=== PATIENT | male | born 1940 | race Caucasian/White ===

== ENCOUNTER 2019-03-13 20:44 | Inpatient (IN) | payer MEDICARE, MEDICAID ==
[~2019-03-13] VITALS: Ht 175.3 cm; Wt 111.1 kg
--- NOTE | 2019-03-13 21:07 | NUR ---
2 person assist bladder hygiene provided
[2019-03-13] MEDS ORDERED: FLO0.4C PO (21:17)
[2019-03-13] MEDS ORDERED: OMEP40CA13 PO (21:17)
[2019-03-13] MEDS ORDERED: FERR325T28 PO (21:17)
[2019-03-13] MEDS ORDERED: SIMV10TA2 PO (21:17)
[2019-03-13] MEDS ORDERED: FURO-150 PO (21:17)
[2019-03-13] MEDS ORDERED: INSU100I31 SUBCUT (21:17)
[2019-03-13] MEDS ORDERED: HYDR500C18 PO (21:17)
[2019-03-13] MEDS ORDERED: POTA10TA19 PO (21:17)
[2019-03-13] MEDS ORDERED: DICL100G15 TOP (21:17)
[2019-03-13] MEDS ORDERED: LISI-600 PO (21:17)
--- NOTE | 2019-03-13 21:28 | NUR ---
the pt is very comfortable, covered in warmed blankets. Encouraged him to rest, that soon he will have a bed upstairs.
[2019-03-13 21:37] LABS: EOSINOPHILS # (AUTO) 0.1 X10'3 (0-0.9); HEMOGLOBIN 8.3 g/dl (14.0-17.9); LYMPHOCYTES # (AUTO) 0.5 X10'3 (1.1-4.8); MONOCYTES # (AUTO) 0.4 X10'3 (0-0.9); NEUTROPHILS # (AUTO) 3.1 X10'3 (1.8-7.7); NEUTROPHILS % (AUTO) 75.5 % (42-75); WHITE BLOOD COUNT 4.1 X10'3 (4.5-11.0)
[2019-03-13 21:38] LABS: BASOPHILS % (AUTO) 0.7 % (0-1); HEMATOCRIT 24.9 % (42.0-52.0); LYMPHOCYTES % (AUTO) 11.9 % (21-51); MEAN CORPUSCULAR HEMOGLOBIN 34.1 PG (27.0-31.0); MEAN CORPUSCULAR HGB CONC 33.4 g/dL (33.0-36.5); MEAN CORPUSCULAR VOLUME 102.1 FL (78-98); MEAN PLATELET VOLUME 7.7 FL (7.4-10.4); MONOCYTES % (AUTO) 9.9 % (2-12); PLATELET COUNT 410 X10'3 (140-440); RED BLOOD COUNT 2.44 X10'6 (4.70-6.10); RED CELL DISTRIBUTION WIDTH 22.6 % (11.5-14.5)
[2019-03-13 21:50] LABS: ALANINE AMINOTRANSFERASE 26 U/L (12-78); ALBUMIN 2.4 G/DL (3.4-5.0); ALBUMIN/GLOBULIN RATIO 0.5 (1.1-1.5); ALKALINE PHOSPHATASE 73 IU/L (46-116); ANION GAP 6 (8-16); ASPARTATE AMINO TRANSFERASE 25 U/L (10-37); BILIRUBIN,TOTAL 0.9 MG/DL (0.1-1.0); BLOOD UREA NITROGEN 24 MG/DL (7-18); BUN/CREATININE RATIO 15.4 (5.4-32.0); CALCIUM 9.2 MG/DL (8.5-10.1); CHLORIDE 105 MMOL/L (99-107); CREATININE 1.56 MG/DL (0.60-1.10); GLUCOSE 84 MG/DL (70-104); POTASSIUM 4.5 MMOL/L (3.5-5.1); SODIUM 137 MMOL/L (135-145); TOTAL CARBON DIOXIDE 25.8 MMOL/L (24-32); TOTAL PROTEIN 7.3 G/DL (6.4-8.2); eGFR 43 ML/MIN
[2019-03-13] MEDS ORDERED: acetaminophen 325mg tablet PO PRN (21:50)
[2019-03-13] MEDS ORDERED: ondansetron/PF 4mg/2ml inj IV PRN (21:50)
[2019-03-13] MEDS ORDERED: magnesium hydroxide 30ml (MOM) UD suspension PO PRN (21:50)
[2019-03-13] MEDS ORDERED: mag hydrox/Alum hydrox/simeth 30ml oral suspension PO PRN (21:50)
[2019-03-13] MEDS ORDERED: insulin Lispro (HumaLOG) vial - multi-dose SQ SCH (21:55)
[2019-03-13] MEDS ORDERED: MESSAGE TO PHARMACY PO ONE (21:55)
[2019-03-13] MEDS ORDERED: dextrose 50%-water 50ml dispensing syringe IV PRN ×2 (21:55)
[2019-03-13] MEDS ORDERED: dextrose ORAL solution 15 GM/59 ML bottle PO PRN ×2 (21:55)
[2019-03-13] MEDS ORDERED: glucagon, human recombinant 1mg kit SUBCUT PRN (21:55)
[2019-03-13 22:01] LABS: ANISOCYTOSIS 3+; PLATELET ESTIMATE INCREASED; POLYCHROMASIA FEW
[2019-03-13 22:18] LABS: HEMOGLOBIN A1C 5.4 % (4.5-6.2)
[2019-03-13 22:45] VITALS: BP 146/70
--- NOTE | 2019-03-13 23:26 | NUR ---
Patient arrived via [facility], transferred to bed via slide board, vitals obtained, telebox applie. Patient is stable. 2 RN skin check complete.
[2019-03-14 02:00] VITALS: BP 128/64
[2019-03-14] MEDS ORDERED: DICLOFENAC SODIUM 1 GM TOP SCH (02:00)
--- NOTE | 2019-03-14 06:15 | NUR ---
Patient in room PCU 3019. I have received report from MARCUS Guadarrama and had the opportunity to ask questions and assume patient care.
[2019-03-14 06:18] LABS: BASOPHILS % (AUTO) 0.8 % (0-1); EOSINOPHILS # (AUTO) 0.1 X10'3 (0-0.9); HEMATOCRIT 23.1 % (42.0-52.0); HEMOGLOBIN 7.6 g/dl (14.0-17.9); LYMPHOCYTES # (AUTO) 0.3 X10'3 (1.1-4.8); LYMPHOCYTES % (AUTO) 8.8 % (21-51); MEAN CORPUSCULAR HEMOGLOBIN 33.9 PG (27.0-31.0); MEAN CORPUSCULAR HGB CONC 33.1 g/dL (33.0-36.5); MEAN CORPUSCULAR VOLUME 102.6 FL (78-98); MONOCYTES # (AUTO) 0.4 X10'3 (0-0.9); NEUTROPHILS # (AUTO) 2.9 X10'3 (1.8-7.7); NEUTROPHILS % (AUTO) 78.4 % (42-75); PLATELET COUNT 389 X10'3 (140-440); RED BLOOD COUNT 2.25 X10'6 (4.70-6.10); RED CELL DISTRIBUTION WIDTH 22.3 % (11.5-14.5); WHITE BLOOD COUNT 3.7 X10'3 (4.5-11.0)
--- NOTE | 2019-03-14 06:51 | NUR ---
Problems reprioritized. Patient report given, questions answered & plan of care reviewed with MARCUS Cox.
[2019-03-14 07:01] LABS: ALANINE AMINOTRANSFERASE 25 U/L (12-78); ALBUMIN 2.3 G/DL (3.4-5.0); ALBUMIN/GLOBULIN RATIO 0.5 (1.1-1.5); ALKALINE PHOSPHATASE 69 IU/L (46-116); ANION GAP 9 (8-16); ASPARTATE AMINO TRANSFERASE 23 U/L (10-37); BILIRUBIN,TOTAL 1.1 MG/DL (0.1-1.0); BLOOD UREA NITROGEN 22 MG/DL (7-18); BUN/CREATININE RATIO 16.5 (5.4-32.0); CALCIUM 9.1 MG/DL (8.5-10.1); CHLORIDE 105 MMOL/L (99-107); CREATININE 1.33 MG/DL (0.60-1.10); GLUCOSE 75 MG/DL (70-104); POTASSIUM 4.5 MMOL/L (3.5-5.1); SODIUM 138 MMOL/L (135-145); TOTAL CARBON DIOXIDE 24.3 MMOL/L (24-32); eGFR 52 ML/MIN
[2019-03-14 07:12] VITALS: BP 110/37
[2019-03-14 07:41] LABS: ANISOCYTOSIS 3+; PLATELET ESTIMATE NORMAL
[2019-03-14 07:42] LABS: LARGE PLATELETS FEW
[2019-03-14] MEDS: ferrous sulfate 325mg tablet PO SCH (08:54)
[2019-03-14] MEDS: pantoprazole 40mg Tablet.DR PO SCH (08:54)
[2019-03-14] MEDS: lisinopril 10 MG tablet PO SCH (08:55)
[2019-03-14] MEDS: furosemide 20MG tablet PO SCH ×2 (08:55→21:00)
--- NOTE | 2019-03-14 10:00 | NUR ---
Dr. Guo at bedside. new order to d/c Voltaren cream.
[2019-03-14 11:00] VITALS: BP 128/69
[2019-03-14 15:00] VITALS: BP 136/72
[2019-03-14 19:00] VITALS: BP 135/69
--- NOTE | 2019-03-14 19:02 | NUR ---
Problems reprioritized. Patient report given, questions answered & plan of care reviewed with MARCUS Rodriguez.
--- NOTE | 2019-03-14 19:12 | NUR ---
Patient in room PCU 3019. I have received report from Brooke VELAZQUEZ and had the opportunity to ask questions and assume patient care.
--- NOTE | 2019-03-14 19:13 | NUR ---
Patient in room PCU 3019. I have received report from Brooke VELAZQUEZ and had the opportunity to ask questions and assume patient care.
[2019-03-14] MEDS ORDERED: insulin glargine (Lantus) pen - multi-dose SQ SCH (21:00)
[2019-03-14] MEDS: diatr meglu/diatrizoate 30ml oral sol.-(3 dose) bottle PO SCH (21:01)
[2019-03-14 23:00] VITALS: BP 139/71
[2019-03-15 02:00] VITALS: BP 117/62
--- NOTE | 2019-03-15 06:00 | NUR ---
Patient in room PCU 3019. I have received report from MARCUS Rodriguez and had the opportunity to ask questions and assume patient care.
--- NOTE | 2019-03-15 06:02 | NUR ---
Problems reprioritized. Patient report given, questions answered & plan of care reviewed with Brooke VELAZQUEZ.
[2019-03-15 06:05] LABS: BASOPHILS % (AUTO) 0.7 % (0-1); EOSINOPHILS # (AUTO) 0.1 X10'3 (0-0.9); EOSINOPHILS % (AUTO) 1.7 % (0-6); HEMOGLOBIN 8.4 g/dl (14.0-17.9); LYMPHOCYTES # (AUTO) 0.4 X10'3 (1.1-4.8); LYMPHOCYTES % (AUTO) 8.9 % (21-51); MEAN CORPUSCULAR HEMOGLOBIN 34.5 PG (27.0-31.0); MEAN CORPUSCULAR HGB CONC 33.7 g/dL (33.0-36.5); MEAN CORPUSCULAR VOLUME 102.2 FL (78-98); MEAN PLATELET VOLUME 8.2 FL (7.4-10.4); MONOCYTES # (AUTO) 0.5 X10'3 (0-0.9); MONOCYTES % (AUTO) 9.7 % (2-12); NEUTROPHILS # (AUTO) 3.8 X10'3 (1.8-7.7); PLATELET COUNT 417 X10'3 (140-440); RED BLOOD COUNT 2.45 X10'6 (4.70-6.10); RED CELL DISTRIBUTION WIDTH 21.4 % (11.5-14.5); WHITE BLOOD COUNT 4.8 X10'3 (4.5-11.0)
--- NOTE | 2019-03-15 06:05 | NUR ---
Problems reprioritized. Patient report given, questions answered & plan of care reviewed with Brooke Tejada RN.
[2019-03-15 06:30] LABS: ALANINE AMINOTRANSFERASE 29 U/L (12-78); ALBUMIN 2.5 G/DL (3.4-5.0); ALBUMIN/GLOBULIN RATIO 0.5 (1.1-1.5); ALKALINE PHOSPHATASE 79 IU/L (46-116); ANION GAP 11 (8-16); ASPARTATE AMINO TRANSFERASE 27 U/L (10-37); BLOOD UREA NITROGEN 23 MG/DL (7-18); BUN/CREATININE RATIO 16.2 (5.4-32.0); CALCIUM 9.1 MG/DL (8.5-10.1); CHLORIDE 99 MMOL/L (99-107); CREATININE 1.42 MG/DL (0.60-1.10); GLUCOSE 99 MG/DL (70-104); POTASSIUM 3.7 MMOL/L (3.5-5.1); SODIUM 137 MMOL/L (135-145); TOTAL CARBON DIOXIDE 26.9 MMOL/L (24-32); TOTAL PROTEIN 7.8 G/DL (6.4-8.2); eGFR 48 ML/MIN
[2019-03-15 06:55] VITALS: BP 112/62
[2019-03-15] MEDS: lisinopril 10 MG tablet PO SCH (07:15)
[2019-03-15] MEDS: diatr meglu/diatrizoate 30ml oral sol.-(3 dose) bottle PO SCH ×2 (07:15→08:35)
[2019-03-15] MEDS: pantoprazole 40mg Tablet.DR PO SCH (07:15)
[2019-03-15] MEDS: ferrous sulfate 325mg tablet PO SCH (07:15)
[2019-03-15] MEDS: furosemide 20MG tablet PO SCH (07:15)
[2019-03-15 07:44] LABS: ANISOCYTOSIS 3+; LARGE PLATELETS FEW; PLATELET ESTIMATE NORMAL; POLYCHROMASIA 1+
--- NOTE | 2019-03-15 10:59 | NUR ---
Page send to Dr. Guo to notify that colonoscopy and endoscopy results in chart. PAGER ID: [phone] MESSAGE: [phone] Matteo Ramirez: FYI- Colonoscopy and Endoscopy records in chart. Still waiting for CT. thanks, Brooke x [phone]
[2019-03-15 11:00] VITALS: BP 93/44
[2019-03-15] MEDS ORDERED: iohexol 300mg/ml 100ml inj. ONE (11:54)
--- NOTE | 2019-03-15 12:05 | NUR ---
Patient off unit having CT.
[2019-03-15 15:00] VITALS: BP 101/55
[2019-03-15 18:00] VITALS: BP 109/71
--- NOTE | 2019-03-15 18:15 | NUR ---
Patient in room U 3019. I have received report from Brooke VELAZQUEZ and had the opportunity to ask questions and assume patient care. Patient is sitting up in bed awaiting his ride for discharge.
--- NOTE | 2019-03-15 19:55 | NUR ---
Patient is stable and ready for discharge per orders. His family has arrived to take him home. Telemetry monitoring discontinued. Both IV catheters removed and intact. All personal belongings packed, placed in bags and given to family. Patient transferred by wheelchair with PCT and family at his side.
== END 2019-03-15 20:00 | disposition home or self-care (01) | DRG 812 ==
LOC: ER 20:45 → ED HOLD 22:29 → CMPBEDREQ 23:00 → PCU 3S 23:00
PROVIDERS: ADMIT Internal Medicine; ATTEND Family Medicine
PROC: BW211ZZ Computerized Tomography (CT Scan) of Abdomen and Pelvis using Low Osmolar Contrast (ICD-10-PCS; principal; 2019-03-15)
DX: D64.9 Anemia, unspecified (principal); C85.90 Non-Hodgkin lymphoma, unspecified, unspecified site; C95.10 Chronic leukemia of unspecified cell type not having achieved remission; E11.9 Type 2 diabetes mellitus without complications; I10 Essential (primary) hypertension; I44.0 Atrioventricular block, first degree; J44.9 Chronic obstructive pulmonary disease, unspecified; M10.9 Gout, unspecified; R55 Syncope and collapse; Z88.5 Allergy status to narcotic agent; Z86.718 Personal history of other venous thrombosis and embolism; Z98.49 Cataract extraction status, unspecified eye
CPT/HCPCS: 36415; 74177; 80053; 82948; 83036; 85025; 85610; 86885; 86900; 86901; 87081; 99285; G0378; J1815; Q9963; Q9967